=== PATIENT | male | born 1980 | race Caucasian/White ===

== ENCOUNTER 2022-04-04 01:31 | Emergency (ER) | payer BC ==
[~2022-04-04] VITALS: Ht 177.8 cm; Wt 87.1 kg
[~2022-04-04 01:31] MED LIST: BENZONATATE100 MG PO; PANTOPRAZOLE SO40 MG PO
[2022-04-04] MEDS ORDERED: LEVOTHYROXINE25 MC1 PO (03:56)
--- NOTE | 2022-04-06 12:55 | EKG ---
[facility] [address] [facility] [place] [address] Signed Sinus rhythm with premature atrial complexes Otherwise normal ECG No previous ECGs available Confirmed by OPHELIA IGNACIO MD ([id number]) on 04/06/2022 12:55:13 PM Electronically Signed By: OPHELIA IGNACIO MD 04/06/22 [id number] PATIENT NAME: SB RODRIGUEZ Electrocardiogram DATE OF : 80 PHYSICIAN: OPHELIA IGNACIO MD REPORT #: [id number] REPORT IS CONFIDENTIAL AND NOT TO BE RELEASED WITHOUT AUTHORIZATION
== END 2022-04-04 04:20 | disposition home or self-care (01) ==
LOC: ED 01:31
DX: R00.2 Palpitations (principal); E03.9 Hypothyroidism, unspecified; K21.9 Gastro-esophageal reflux disease without esophagitis; Z79.899 Other long term (current) drug therapy; Z20.822 Contact with and (suspected) exposure to COVID-19
CPT/HCPCS: 36415; 80053; 83735; 84100; 84439; 84443; 85025; 86140; 87502; 93005; 93010; 99285-25; C9803; U0003

== ENCOUNTER 2022-10-21 15:44 | Emergency (ER) | payer BC ==
[~2022-10-21] VITALS: Ht 177.8 cm; Wt 87.1 kg
[~2022-10-21 15:44] MED LIST changes: +LEVOTHYROXINE25 MC1 PO
[2022-10-21] MEDS ORDERED: PRADAXA150 MG PO (16:02)
[2022-10-21] MEDS ORDERED: DILT-XR120 MG PO (16:02)
== END 2022-10-21 17:40 | disposition home or self-care (01) ==
LOC: ED 15:44
DX: R06.00 Dyspnea, unspecified (principal); I48.0 Paroxysmal atrial fibrillation; G47.33 Obstructive sleep apnea (adult) (pediatric); K21.9 Gastro-esophageal reflux disease without esophagitis; Z79.899 Other long term (current) drug therapy
CPT/HCPCS: 36415; 71045; 71046; 80053; 83735; 84484; 85025; 99285-25